=== PATIENT | female | born 1955 | race Caucasian/White ===

== ENCOUNTER 2019-04-02 13:45 | Emergency (ER) | payer MEDICARE, OTHER ==
[~2019-04-02] VITALS: Ht 154.9 cm; Wt 84.0 kg
[~2019-04-02 13:45] MED LIST: ALPHA LIPOIC OR; AMITRIPTYLIN25 MG OR; AMITRIPTYLIN25 MG PO; ASPIRIN LOW DOS81 M2 PO; AUGMENTIN875 MG PO; B COMPLE4 OR; BABY ASPIRIN81 MG OR; BACTRIM DS1 TAB PO; BL ADULT ASA81 MG PO; C 250 PO; CALCIUM/VITAMI600 MG PO; CATAFLAM50 MG PO; CEFEPIME1 GM IV; CIPROFLOXACN500 MG PO; CUBICIN500 MG IV; CYMBALTA60 MG OR; CYMBALTA60 MG PO; DETROL LA4 MG PO; FERROUS SULF325 M1 PO; FLEXERIL PO; FUROSEMIDE40 MG PO; GENTAMICIN SULFATE EX; GENTAMICIN0.1 % EX; GLUCOSAMINE1000 MG PO; HUMULIN R1 M1 SC; HYDROCHLORO25 MG/TAB PO; HYDROCHLOROT25 MG OR; HYDROCHLOROT25 MG PO; IMDUR30 MG PO; ISOSORB MONO30 MG OR; K-DUR/KLOR-CON10 ME1 OR; LANTUS100 MG/ML SC; LANTUS100 UNIT/M SC; LASIX 40 MG TAB40 MG OR; LASIX 40 MG40 MG/TAB PO; LEVAQUIN750 MG OR; LEVOTHROID75 MCG OR; LEVOTHYROXIN100 MCG PO; LISINOP/HCTZ1 TA1 OR; LISINOPRIL20 M1 OR; LISINOPRIL20 MG PO; LYRICA50 MG PO; LYSINE PO; MELATONIN CR10 MG PO; METFORMIN1000 MG OR; METFORMIN500 MG PO; METO25TAB PO; MORPHINE SUL15 M2 OR; MORPHINE SUL30 M3 PO; NEURONTIN300 MG OR; NEURONTIN300 MG PO; NOVOLIN 70/30 SC; NOVOLIN R U-1001 ML SC; NOVOLOG100 IU/1 M SC; OXYCODONE HCL30 MG PO; POT CHLORIDE10 ME1 PO; ROXICODONE15 MG OR; ROXICODONE15 MG PO; SENNALAX S PO; SEPTRA DS1 TAB OR; TOPROL XL25 M1 OR; TRULICITY1.5 MG/0.5 SC; ULTRAM50 M1 PO; VANCOMYCIN HCL1 GM IV; WOMENS MULTI VITAMIN PO; ZOCOR OR; ZOCOR20 M1 PO; ZOCOR20 MG OR; ZOCOR40 MG OR
[2019-04-02] MEDS ORDERED: KEFLEX500 M1 PO (16:10)
[2019-04-02 16:16] VITALS: BP 156/72
[2019-04-03] MEDS ORDERED: BACTROBAN TOP (14:53)
== END 2019-04-02 16:30 | disposition home or self-care (01) ==
LOC: ED 13:45
DX: S90.415A Abrasion, left lesser toe(s), initial encounter (principal); W22.8XXA Striking against or struck by other objects, initial encounter; Y92.009 Unspecified place in unspecified non-institutional (private) residence as the place of occurrence of the external cause; Z48.00 Encounter for change or removal of nonsurgical wound dressing

== ENCOUNTER 2019-08-10 | Inpatient (IN) | payer MEDICARE, OTHER ==
[2019-08-10] VITALS (11 sets, daily range): BP systolic 104–152; BP diastolic 39–108
[~2019-08-10] MED LIST changes: +BACTROBAN TOP; +KEFLEX500 M1 PO; -OXYCODONE HCL30 MG PO; +OXYCODONE15 MG PO
--- NOTE | 2019-08-10 12:32 | NUR ---
PATIENT TO ROOM VIA WHEELCHAIR LEFT FACILA DROOP LEFT ARM DRIFT AND LEFT UPPER ATAXIA. PATIENT STATES LKW 58 HOURS PRIOR TO ARRIVAL
--- NOTE | 2019-08-10 12:40 | NUR ---
PT PRESENTS WITH LEFT ARM AND LEFT LEG WEAKNESS THAT LEAD TO A FALL 58 HRS AGO. PT IS A DIABETIC WITH NEUOPATHY IN THE LEFT LOWER LEG AND LEFT FOOT. 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 NIH SCALE COMPLETED AND IT IS AT A 0. PT ALERT AND COOPERATIVE. PT RESOPONED TO ALL TEST QUESTIONS APPROPRIATELY. LUNGS ARE CLEAR BILATERALLY AND ABDOMEN NON TENDER. PERLLA. WILL CONTINUE TO MONITOR
--- NOTE | 2019-08-10 14:30 | NUR ---
WAS CHECHING ON PT WHEN SHE STATES THAT SHE HAS PAIN OF 9/10 IN PHANTOM PAIN. NOTIFIED
[2019-08-10 14:31] LABS: HEMATOCRIT 37.8 % (37.0-47.0); HEMOGLOBIN 11.7 g/dl (12.0-16.0); IMMATURE GRANULOCYTES 0.1 % (0.0-5.0); MEAN CELL VOLUME 89.4 fL CALC (80.0-100.0); MEAN CORPUSCULAR HGB 27.7 pG CALC (26.0-32.0); NEUT# 3.05 thou/uL (2.00-7.15); RED BLOOD COUNT 4.23 mill/uL (4.20-5.60); RED CELL DISTRI WIDTH 13.2 % (11.5-15.5)
[2019-08-10 14:37] LABS: ALBUMIN 3.6 g/dL (3.2-5.0); ALKALINE PHOSPHATASE 94 u/l (38-126); ANION GAP 13 (6-22 (CALC)); BUN 8 mg/dL (8-23); BUN/CREATININE RATIO 15 (12-20 (CALC)); CARBON DIOXIDE 31 mmol/l (22-30); CHLORIDE 97 mmol/l (95-108); CREATININE 0.5 mg/dL (0.5-1.0); GFR > 60 ML/MIN (>=60 (CALC)); GFR FOR AFR.AMER. > 60 ML/MIN (>=60 (CALC)); POTASSIUM 4.3 mmol/l (3.5-5.1); SGOT/AST 21 u/l (9-36); SODIUM 136 mmol/l (137-146); TOTAL PROTEIN 6.9 g/dL (6.3-8.2)
[2019-08-10 14:43] LABS: BILIRUBIN, TOTAL 0.4 mg/dL (0.0-1.4)
[2019-08-10 14:45] LABS: INTERNATIONAL NORMALIZED RATIO 0.9 RATIO (0.7-1.3); PROTHROMBIN TIME 9.7 SECONDS (9.0-12.5)
--- NOTE | 2019-08-10 14:50 | NUR ---
MORPHINE RAMON, PT TOLERATED WELL. RADIOLOGY HER TO TAKE PT TO CT
--- NOTE | 2019-08-10 15:20 | NUR ---
PT WAS REASSESSED FOR PAIN AND PT STATES A PAIN OF 3/10
--- NOTE | 2019-08-10 16:30 | NUR ---
PT RESTING ON STRETCHER AND WAS ADVISED OF PLAN OF CARE AND WAIT TIME
[2019-08-10 17:55] LABS: CHOLESTEROL HDL RATIO 2.8 (<4.4 (CALC))
--- NOTE | 2019-08-10 18:22 | NUR ---
PATIENT TRANSPORTED TO ICU
--- NOTE | 2019-08-10 18:30 | NUR ---
PT TRANSPORTED TO ICU ROOM 4 STABLE AND IN NO DISTRESS. CARE ASSUMED TO JENIFER
--- NOTE | 2019-08-10 18:41 | NUR ---
PATIENT ARRIVES VIA ER STRETCHER, CONNECTED TO [employer] DEVELOPER ACCOMPANIED BY ER NURSE. SHE IS AWAKE AND ALERT, CARRIES HER OWN CUP IN HER HAND. SHE IS ABLE TOT TRANSFER BY SCOOTING HERSELF INTO THE BED WITH SOME ASSISTANCE AND VERBAL CUEING. HER RIGHT ARTIFICIAL LEG AND LEG LINER IS TAKEN OFF BY HERSELF, JEANS WERE TAKEN OFF. SHE IS ON ROOM AIR, NO SOB NOTED, SATS GREATER THAN 95%. AFEBRILE. HEAD TO TOE NURSING ASSESSMENT PERFORMED, SEE CHARTING DOCUMENTATION AND NOTES. 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 RAC 20 G IV INTACT AND SALINE LOCKED. IS AT BEDSIDE. PATIETNABLE TO ANSWER ALL ADMISSION MEDICAL HISTORY AND MEDICATIONS RECONCILED. PATIENT REPORTS SHE FELL MONDAY MORNING AROUND 02OO AND FELL ON TOP OF HER DOG'S BED SINCE THAN SHE REPORTS HER LEFT HAND HAS BEEN HANGING DOWN, PT DOES HAVE EQUAL STRONG PERMASTONE APPLICATOR. PT REPORTS SHE HAS A BM ONCE A WEEK AND THAT IS HER NORMAL, SHE REPORTS SHE TAKE S A STOOL SOFTENER. PT REPORTS PHANTOM PAIN TO HER R-BKA, RATES 3/10 FOR WHICH SHE WAS GIVEN PAIN MEDICATION AT ER. PATIENT REPORTS SHE HAS THE PNEUMONIA VACCINE LAST YEAR IS NOT SURE WHAT MONTH BUT CONSENTS TO HAVE IT HERE AGAIN. BS 283 MG/DL. PT IS ON A CARDIA LOW FAT DIET AND WAS EDUCATED ABOUT IT AND SHE SENDS HER TO GET HER FAST FOOD. WEIGHT TAKEN. EDUCATED ABOUT SCD'S. EDUACTED ABOUT STROKE PROTOCOL AND NIH AND MEND EXAMS. BEDSIDE DYSPAHIA SCREENING PERFORMED, PT ABLE TO SWALLOW WATER WITHOUT DIFFICULTY. PT ABLE TO SELFP REPSOITION. EDUCATE DON POC FOR TONIGHT, MEDICATIONS. CALL LIGHT WITHIN [facility] ONTINUE TO MONITOR.
[2019-08-10] MEDS ORDERED: NOVOLIN 70/30 INNLT SC (19:54)
[2019-08-10] MEDS ORDERED: METFORMIN850 MG PO (19:55)
--- NOTE | 2019-08-10 20:10 | NUR ---
CALLED AND SPOKE TO DR QUINONEZ REGARDING STROKE PROTOCOL ORDERS, NEW ORDERS RECEIVED.
--- NOTE | 2019-08-10 21:45 | NUR ---
WHILE PERFORMING MEND EXAM ON PATIENT SHE REPORTS SHE HAS THIS "TINGLING SENSATION ON HER LEFT ARM AND FINGERS, SHE REPORTS SENSATIONS IS "LIKE WHEN YOUR FEET OR HANDS FALL ASLEEP AND THEY TINGLE." PT REPORTS IT HAS STARTED SINCE THIS AFTERNOON AND IS INTERMITTENT. SHE REPORTS SHE FEELS THE SAME ON HER BILAT LE AND IT'S NOT NEW ON HER BILAT LE BECAUSE SHE HAS RESTELESS LEG SYNDROME. PATIENT REPORTS SHE SEE'S A PAIN MANAGEMENT DOCTOR AND HE HAS TOLD HER SHE CAN GET NEUROPATHY ON HER HANDS/FINGERS TOO WHICH SHE REPORTS SHE ALSO HAS NEUROPATHY ON BILAT LE. ON HER MEND EXAM SHE ONLY HAS LEFT LIMB ATAXIA BY TESTING FINGER TO NOSE , NO DRIFTING OBSERVED, NO FACIAL DROOP. PATIENT WAS ALSO ASSISTED SAFELY TO AND FROM [facility], VOIDS 375 ML AND IT IS YELLOW AND CLEAR, NO MALODOR. CALL LIGHT WITHIN REACH. WILL CONTINUE TO MONITOR.
--- NOTE | 2019-08-10 21:49 | NUR ---
PATIENT ABLE TO TOLERATE HER BEDTIME MEDICATIONS WITHOUT DIFFICULTY. MORE ICED WATER TO HER OWN CUP PROVIDED. PATIENT HAS NO TINGLING SENSATION TO SHERITA. NO OTHER COMPLAINTS. CALL LIGHT WITHIN REACH.
[2019-08-11] VITALS (21 sets, daily range): BP systolic 115–202; BP diastolic 48–117
--- NOTE | 2019-08-11 00:15 | NUR ---
PATIENT ASSISTED TO AND FROM [facility]. TYLENOL GIVEN FOR COMPLAINTS OF RLS. MEND EXAM HAS NOT CHANGED, SCORED FOR LUE LIMB ATAXIA. CALL LIGHT WITHIN REACH.
--- NOTE | 2019-08-11 01:25 | NUR ---
PATIENT ASSISTED TO AND FROM [facility]. SHE REQUESTS TO SIT ON BEDSIDE CHAIR. CONTINUES TO WATCH TV. MEND EXAM HAS NO CHANGES. WILL CONTINUE TO MONITOR.
--- NOTE | 2019-08-11 02:26 | NUR ---
PATIENT ASSISTED TO AND FROM [facility]. SHE DECIDES TO LAY BACK IN BED. NOW SITS IN BED, SHE COMPLAINS OF RESTLESS LEG SYNDROME AND IT IS NOT ALLOWING HER TO SLEEP. PT REPORTS SHE TAKES GABAPENTIN 600 MG BID IN AM AND BT, 300 MG AT 1200. CALLED AND SPOKE TO DR CHUNG AT ER, NEW ORDERS RECEIVED. ORDERS FAXED TO [facility].
--- NOTE | 2019-08-11 02:39 | NUR ---
GABAPENTIN ORDER PROVIDED TO PATIENT. REPORTS ONLY HER "FEET" ARE BOTHERING HER. MEND EXAM UNCHANGED. NO COMPLAINTS OF NUMBNESS OR TINGLING ON HER RUE. CALL LIGHT WITHIN REACH.
--- NOTE | 2019-08-11 04:11 | NUR ---
PATIENTSAFELY TRANSFERRED TO AND FROM [facility]. SHE HAS BEEN ABLE TO TRANSFER WITH MINIMAL ASSISTANCE. NO COMPLAINTS, NO OTHER NEEDS. MEND EXAM UNCHANGED. EASILY AWAKENS WITH VERBAL STIMULI. CALL LIGHT WITHIN REACH. WILL CONTINUE TO MONITOR.
[2019-08-11 04:20] LABS: URINE BILIRUBIN - DIPSTICK NEGATIVE (NEGATIVE); URINE BLOOD DIPSTICK NEGATIVE (NEGATIVE); URINE COLOR YELLOW; URINE GLUCOSE - DIPSTICK >=1000 mg/dL (NEGATIVE); URINE KETONE NEGATIVE (NEGATIVE); URINE LEUK ESTERASE NEGATIVE (NEGATIVE); URINE NITRITE - DIPSTICK NEGATIVE (Negative); URINE PROTEIN - DIPSTICK NEGATIVE (NEG-TRACE); URINE SPECIFIC GRAVITY <=1.005; URINE UROBILINOGEN - DIPSTICK 0.2 E.U./dL (0.2)
[2019-08-11 04:23] LABS: BARBITURATES NEGATIVE (NEGATIVE); COCAINE NEGATIVE (NEGATIVE); METHADONE NEGATIVE (NEGATIVE); OXCYCODONE POSITIVE (NEGATIVE); TETRAHYDROCANNABIONOL NEGATIVE (NEGATIVE); TRICYLIC ANTIDEPRESSANTS NEGATIVE (NEGATIVE)
[2019-08-11 04:44] LABS: HEMATOCRIT 37.6 % (37.0-47.0); HEMOGLOBIN 11.9 g/dl (12.0-16.0); IMMATURE GRANULOCYTES 0.3 % (0.0-5.0); MEAN CELL VOLUME 88.5 fL CALC (80.0-100.0); MEAN CORPUSCULAR HGB CONC 31.6 g/L CALC (32.0-36.0); NEUT# 3.68 thou/uL (2.00-7.15); RED BLOOD COUNT 4.25 mill/uL (4.20-5.60); RED CELL DISTRI WIDTH 12.9 % (11.5-15.5)
[2019-08-11 05:06] LABS: ANION GAP 12 (6-22 (CALC)); BUN 9 mg/dL (8-23); BUN/CREATININE RATIO 22 (12-20 (CALC)); CARBON DIOXIDE 26 mmol/l (22-30); CHLORIDE 102 mmol/l (95-108); CREATININE 0.4 mg/dL (0.5-1.0); GFR > 60 ML/MIN (>=60 (CALC)); GFR FOR AFR.AMER. > 60 ML/MIN (>=60 (CALC)); MAGNESIUM 1.7 mg/dL (1.6-2.3); POTASSIUM 4.4 mmol/l (3.5-5.1); SODIUM 135 mmol/l (137-146)
--- NOTE | 2019-08-11 05:33 | NUR ---
PATIENT ASSSISTED TO AND FROM [facility]. NO ACUTE DISTRESS SHOWN. ON ROOM AIR, NO SOB NOTED. NO COMPLAINTS. WATCHES TV. SR ON TELEMETRY. MEND EXAM UNCHNGED, NO COMPLAINTS OF TINGLING ON L-ARM/HAND/FINGERS. PT DOES STILL HAVE HAND HANGING DOWN, SHE CAN STILL MOVE IT AND HAS EQUAL BILAT MANUFACTURING TECHNOLOGY ANALYST. CALL LIGHT WITHIN REACH. WILL CONTNUE TO MONITOR.
--- NOTE | 2019-08-11 07:05 | NUR ---
pt awake in bed; no apparent distress noted; pt offers complaints of restless legs and phantom pain to right leg; meds explained; assessment completed at this time; pt alert and oriented; no n/v noted; resp even and unlabored; lungs clear bilat; skin color wnl; ra; hr reg; strong left pedal pulse; no edema noted; sr on monitor; abd soft with bs present; no bm noted per teletypewriter operator; pt voiding without complication; bsc; #20 patent to rac with ivf infusing without complication; no redness or edema noted at site; plan of care/ diet explained; accucheck 294; no changs in neuro status; NIH completed; call light within reach; will continue to monitor
--- NOTE | 2019-08-11 08:05 | NUR ---
awake in bed eating breakfast; no apparent distress noted; pt voices no complaints at this time; sr on monitor; iv intact and patent; call light within reach; will continue to monitor
--- NOTE | 2019-08-11 09:12 | NUR ---
JOSEMANUEL Pozo present at bedside to assess pt and discuss plan of care
--- NOTE | 2019-08-11 10:05 | NUR ---
awake in bed; no apparent distress noted; pt appears restless; offers no complaints; iv intact and patent; no redness or edema noted at site; st on monitor; call light within reach; will continue to monitor
--- NOTE | 2019-08-11 10:30 | NUR ---
spouse present at bedside
--- NOTE | 2019-08-11 10:45 | NUR ---
accucheck 445; insulin reviewed and administered; will continue to monitor
--- NOTE | 2019-08-11 11:22 | NUR ---
Dr Wilburn present at bedside to assess pt and discuss plan of care
--- NOTE | 2019-08-11 11:30 | NUR ---
Dr Wilburn present at bedside at bedside to assess pt and discuss plan of care
--- NOTE | 2019-08-11 12:08 | NUR ---
awake in bed eating lunch; no apparent distress noted; pt offers no complaints; iv intact and patent; sr on monitor; call light within reach; will continue to monitor
--- NOTE | 2019-08-11 13:30 | NUR ---
ACCOUNTS RECEIVABLE COORDINATOR Francat informed of elevated bp; orders to be placed
--- NOTE | 2019-08-11 14:00 | NUR ---
awake sitting on side of bed; offers no complaints; no distress noted; resp even and unlabored; sr on monitor; call light within reach; will continue to monitor
--- NOTE | 2019-08-11 16:04 | NUR ---
awake sitting on side of bed; spouse present at bedside; no apparent distress noted; pt offers no complaints; iv intact and patent; sr on monitor; call light within reach; will continue to monitor
--- NOTE | 2019-08-11 18:45 | NUR ---
REPORT FROM Luz LYONS RN. ASSUMED PT. CARE.
--- NOTE | 2019-08-11 19:45 | NUR ---
PT. FOUND RESTING IN BED WITH EYES CLOSED IN NO DISTRESS. RESPS EVEN AND UNLABORED. AFEBRILE. FAN TURNED OFF PER PATIENT REQUEST. BOWEL SOUNDS ACTIVE THROUGHOUT. DENIES COMPLAINTS OF PAIN OR NEED AT THIS TIME. DISTIL PULSES INTACT. NIH-0 AT THIS TIME. NO NEURO DEFICITS NOTED. MAHMOOD. LEA. ALERT AND ORIENTED X 3. C/O MILD PHANTOM RT. LEG PAIN , BUT DENIES NEED FOR PAIN MEDICATION AT THIS TIME. LUNGS CTA. NO EDEMA NOTED. DISTIL PULSES INTACT WITH EXCEPION TO RLE THAT IS ABSENT.
--- NOTE | 2019-08-11 21:05 | NUR ---
PT. MEDICATED PER PHYSICIAN ORDERS. CALL LIGHT REMAINS WITHIN REACH. PT. DENIES OTHER COMPLAINTS OR NEEDS AT THIS TIME. CONTINUES TO DENY NUMBNESS OR TINGLING OR WEAKNESS. REMAINS EASILY AROUSABLE AND ORIENTED X 3.
--- NOTE | 2019-08-11 22:45 | NUR ---
PT. ASSISTED TO [facility] AT THIS TIME. VOIDED APPROXIMATELY 450 CC STRAW COLORED URINE AT THIS TIME. REMAINS STABLE IN NO DISTRESS. STATES HER PAIN IS IMPROVED AFTER BEING MEDICATED. CALL LIGHT REMAINS WITHIN REACH.
[2019-08-12] VITALS (9 sets, daily range): BP systolic 115–178; BP diastolic 50–83
--- NOTE | 2019-08-12 00:30 | NUR ---
PT. REMAINS STABLE ON THE MONITOR WITH RESPS EVEN AND UNLABORED. REMAINS EASILY AROUSABLE TO LIGHT VERBAL STIMULI. REMAINS AFEBRILE. CALL LIGHT REMAINS WITHIN REACH. DENIES REQUEST OR NEED AT THIS TIME. WILL CONTINUE TO CLOSELY MONITOR.
--- NOTE | 2019-08-12 01:54 | NUR ---
PT. REMAINS RESTING IN BED WITH EYES CLOSED IN NO DISTRESS. BP/HR REMAIN STABLE. CALL LIGHT REMAINS WITHIN REACH. WILL CONTINUE TO CLOSELY MONITOR.
--- NOTE | 2019-08-12 03:45 | NUR ---
PT. RESTING IN BED WITH EYES CLOSED. RESPS REMAIN EVEN AND UNLABORED. BP/HR STABLE. PT. WITH SNORING RESPIRATIONS AT THIS TIME. VOICES NO COMPLAINTS OR NEEDS AT THIS TIME. CALL LIGHT WITHIN REACH.
--- NOTE | 2019-08-12 06:00 | NUR ---
PT. REMAINS STABLE, RESTING IN BED WITH EYES CLOSED AND SNORING RESPIRATIONS. REMAINS AFEBRILE. CALL LIGHT REMAINS WITHIN REACH. DENIES COMPLAINTS.
--- NOTE | 2019-08-12 06:45 | NUR ---
RECIEVED REPORT FROM DEMARCUS JHA. ASSUMED PT CARE.
--- NOTE | 2019-08-12 07:30 | NUR ---
PT RESTING IN BED, A&OX3, ABLE TO MAKE NEEDS KNOWN. DENIES CP, SOB OR DISTRESS AT THIS TIME. RESPIRATIONS EVEN/UNLABORED, CLEAR/DIMINISHED. ABDOMEN SOFT, NON TENDER. PT BKA, PT ASKING WHEN ECHO AND MRI WILL TAKE PLACE, ETA PENDING WITH UPDATE AVAILABLE. CALL LIGHT IN REACH. WILL MONITOR.
--- NOTE | 2019-08-12 07:45 | NUR ---
DIETARY ON UNIT, PT REPOSITIONED SELF. BREAKFAST TRAY SET UP.
--- NOTE | 2019-08-12 08:25 | NUR ---
PT AT BEDSIDE WORKING WITH PT.
--- NOTE | 2019-08-12 09:00 | NUR ---
PT OFF UNIT VIA WC TO MRI.
--- NOTE | 2019-08-12 09:50 | NUR ---
PT BACK ON UNIT.
--- NOTE | 2019-08-12 10:00 | NUR ---
PT SISTER AT BEDSIDE FOR VISIT.
--- NOTE | 2019-08-12 10:09 | NUR ---
SHE RATLIFF AT BEDSIDE FOR ASSESSMENT AND TO DISCUSS PLAN OF CARE.
--- NOTE | 2019-08-12 11:48 | NUR ---
ECHO DONE AT BEDSIDE.
--- NOTE | 2019-08-12 12:39 | NUR ---
DIETARY AT [facility] FOR MEAL ORDERS.
--- NOTE | 2019-08-12 14:03 | NUR ---
DR. QUINONEZ AND SHE RATLIFF AT BEDSIDE FOR ASSESSMENT AND TO DISCUSS PLAN OF CARE. NEW ORDERS RECIEVED.
--- NOTE | 2019-08-12 15:37 | NUR ---
OT AT BEDSIDE FOR ASSESSMENT AND PLACE L WRIST IN BRACE. CALL LIGHT IN REACH, WILL MONITOR.
--- NOTE | 2019-08-12 17:00 | NUR ---
IV site discontinued, cath intact. No edema , no redness, voices no discomfort.
--- NOTE | 2019-08-12 17:22 | NUR ---
Discharge instructions given. Patient verbalizes understanding of same. Discharged in stable condition via Wheelchair to Home with family. All belongings sent with pt.
== END 2019-08-12 17:22 | disposition home or self-care (01) | DRG 69 ==
PROVIDERS: Family Medicine; ADMIT Internal Medicine
DX: G45.9 Transient cerebral ischemic attack, unspecified (principal); I10 Essential (primary) hypertension; E11.40 Type 2 diabetes mellitus with diabetic neuropathy, unspecified; F41.9 Anxiety disorder, unspecified; F32.9 Major depressive disorder, single episode, unspecified; G25.81 Restless legs syndrome; G58.8 Other specified mononeuropathies; Z89.511 Acquired absence of right leg below knee; Z79.4 Long term (current) use of insulin
CPT/HCPCS: A9579; Q9967